=== PATIENT | female | born 1985 | race Caucasian/White ===

== ENCOUNTER → 2021-06-16 | Outpatient (CLI) | payer BC ==
--- NOTE | 2021-06-16 11:17 | Diagnostic Imaging Report ---
INDICATION: Low back pain. TIME OF EXAM: 10:47 AM 3 views of the lumbar spine were obtained. Curvature and alignment is normal. Vertebral body heights and disc spaces fairly well maintained. No fracture or subluxation is identified. IMPRESSION: No acute bony abnormality is detected. Dictated by: Dictated on workstation # [id number]
== END ==
LOC: RAD FS 10:00
PROVIDERS: ATTEND Nurse Practitioner Family
DX: M54.5 Low back pain (principal)
CPT/HCPCS: 72100

== ENCOUNTER → 2021-07-26 | Outpatient (CLI) | payer BC ==
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
== END ==
LOC: RAD 08:00
PROVIDERS: ATTEND Physician Assistant
DX: S01.80XA Unspecified open wound of other part of head, initial encounter (principal); Z18.10 Retained metal fragments, unspecified; M51.16 Intervertebral disc disorders with radiculopathy, lumbar region
CPT/HCPCS: 70250

== ENCOUNTER 2021-09-22 10:45 | Day surgery (SDC) | payer BC ==
[2021-09-22] VITALS (9 sets, daily range): BP systolic 101–114; BP diastolic 60–76
[~2021-09-22] VITALS: Ht 177.8 cm; Wt 89.5 kg
--- OUTSIDE RECORDS SUMMARY | 2021-09-22 10:13 | XMS REPORT | Clinical Summary ---
Author Author [facility] Organization [facility] Address Unknown Phone Unavailable Care Team Providers Care Line Installer Repairer Name Role Phone Unverified, Unverified PCP Unavailable Natacha Thrasher RN Unavailable Unavailable Source Comments Some departments are not documenting in the electronic medical record. If you d o not see the information that you expected, contact Release of Information in [facility] Information Management department at [phone] for further assistan ce in locating additional records.[facility] Allergies No Known Active Allergies Medications End Date Status Medication Sig Dispensed Refills Start Date Active NO HOME MEDICATIONS 0 Active docusate (COLACE) 100 mg Take 1 Cap by 60 1 02/18/200 capsule mouth Twice 9 Daily. Active oxycodone (ROXICODONE) 5 Take 1-3 Tabs 120 0 02/18/200 mg tablet by mouth 9 Every 3 Hours as needed for Pain. Active cephalexin (KEFLEX) 500 Take 1 Cap by 40 0 02/18/200 mg capsule mouth Four 9 Times Daily. Active Problems Problem Noted Date Finger laceration involving tendon 02/18/2009 Social History Date Tobacco Use Types Packs/Day Years Used Current Every Day Smoker 0.25 Comments Alcohol Use Standard Drinks/Week No 0 (1 standard drink = 0.6 o z pure alcohol) Sex Assigned at Date Recorded Not on file Last Filed Vital Signs Reading Time Taken Comments Vital Sign 112/59 02/18/2009 2:07 PM CDT Blood Pressure 61 02/18/2009 2:07 PM CDT Pulse 36.7 C (98.1 F) 02/18/2009 2:07 PM CDT Temperature - - Respiratory Rate 96% 02/18/2009 2:07 PM CDT Oxygen Saturation - - Inhaled Oxygen Concentration 95.3 kg (210 lb) 02/17/2009 3:21 PM CDT Weight - - Height - - Body Mass Index Plan of Treatment Health Maintenance Due Date Last Done Comments HIV SCREENING 1998 DTAP/TDAP VACCINES (1 - 2001 Tdap) HEPATITIS C SCREENING 2001 PHYSICAL (COMPREHENSIVE) 2001 EXAM CERVICAL CANCER SCREENING 2004 INFLUENZA VACCINE 06/13/2021 Results Not on filefrom Last 3 Months
[2021-09-22 10:39] LABS: BASOPHILS % (AUTO) 0 % (0-10); EOSINOPHILS % (AUTO) 0 % (0-10); HEMATOCRIT 43 % (35-52); HEMOGLOBIN 14.9 g/dL (11.5-16.0); LYMPHOCYTES # (AUTO) 1.5 10^3/uL (1.0-4.0); LYMPHOCYTES % (AUTO) 28 % (12-44); MEAN CORPUSCULAR HEMOGLOBIN 31 pg (25-34); MEAN CORPUSCULAR HGB CONC 35 g/dL (32-36); MEAN CORPUSCULAR VOLUME 89 fL (80-99); MEAN PLATELET VOLUME 10.3 fL (9.0-12.2); MONOCYTES # (AUTO) 0.4 10^3/uL (0.0-1.0); MONOCYTES % (AUTO) 7 % (0-12); NEUTROPHILS # (AUTO) 3.6 10^3/uL (1.8-7.8); NEUTROPHILS % (AUTO) 65 % (42-75); PLATELET COUNT 208 10^3/uL (130-400); WHITE BLOOD COUNT 5.5 10^3/uL (4.3-11.0)
[~2021-09-22 10:45] MED LIST: IOHEXOL 240 MGI/ML 50 ML (OMNIPAQUE) VIAL IV ONE
[2021-09-22 11:17] LABS: PROTHROMBIN TIME PATIENT 13.4 SEC (12.2-14.7)
[2021-09-22] MEDS ORDERED: ACETAMINOPHEN 500 MG TAB (TYLENOL) PO PRN (12:00)
[2021-09-22] MEDS ORDERED: PRD20T PO (12:35)
[2021-09-22] MEDS ORDERED: DESV50TA8 PO (12:35)
[2021-09-22] MEDS ORDERED: CYCL10TA9 PO (12:35)
[2021-09-22] MEDS ORDERED: SLF500T PO (12:35)
--- NOTE | 2021-09-22 13:00 | Diagnostic Imaging Report ---
INDICATION: Low back pain extending into the left leg. DETAILS OF THE PROCEDURE: The patient was brought to the procedure room and placed on the table in the prone position. The skin of the low back was prepped and draped in the usual sterile fashion. A small amount of 1% lidocaine was utilized for local anesthesia. A 22-gauge spinal needle was advanced into the lumbar thecal sac at the L3-L4 level. A 12 mL solution of Omnipaque 240 contrast was injected under fluoroscopic observation. The needle was removed and hemostasis was obtained. Spot films of the lumbar spine were obtained in multiple obliquities. 27 seconds of fluoroscopic time were utilized. The patient tolerated the procedure well and was sent to CT in satisfactory condition. Images demonstrate contrast throughout the lumbar thecal sac. The spinal canal appears be patent. No large extradural defects are seen. There appears to be filling of the nerve root sleeves. IMPRESSION: Lumbar myelogram. Further evaluation will be performed with post-myelography CT. Dictated by: Dictated on workstation # [id number]
--- NOTE | 2021-09-22 13:31 | Diagnostic Imaging Report ---
PROCEDURE: CT lumbar spine with contrast. TECHNIQUE: Multiple contiguous axial images were obtained through the lumbar spine after the intrathecal administration of contrast. Sagittal and coronal reformations were then performed. Auto Exposure Controls were utilized during the CT exam to meet ALARA standards for radiation dose reduction. INDICATION: Low back pain extending into the left leg. FINDINGS: Curvature and alignment of the lumbar spine is normal. Vertebral body heights are maintained. No fractures seen. There is degenerative disc disease at the L5-S1 level with disc space narrowing and some marginal spurring present. There is contrast throughout the lumbar thecal sac. No spinal canal narrowing is identified. There is some bilateral neural foraminal narrowing at the L5-S1 level due to marginal spurring. There appears to be some broad-based disc bulging at the L3-L4 level, flattening the ventral thecal sac. The central canal remains patent. The paraspinous tissues are unremarkable. IMPRESSION: Some mild lower lumbar spondylosis. There appears to be some neural foraminal narrowing and [id number] L5-S1 level. No significant central canal stenosis is detected. Dictated by: Dictated on workstation # [id number]
== END 2021-09-22 15:01 | disposition home or self-care (01) ==
LOC: RAD 10:45 → SDC 11:59 → RAD 15:01
PROVIDERS: ATTEND Physician Assistant
DX: M47.816 Spondylosis without myelopathy or radiculopathy, lumbar region (principal)
CPT/HCPCS: 36415; 62284; 72132; 72265; 77002; 85025; 85610; 85730